=== PATIENT | male | born 1995 | race Caucasian/White ===

== ENCOUNTER 2017-09-16 07:34 | Emergency (ER) | payer BC ==
[~2017-09-16] VITALS: Ht 170.2 cm; Wt 75.0 kg
[2017-09-16 07:46] VITALS: TEMP 36.6; Ht 170.2 cm; Wt 75.0 kg
[2017-09-16] MEDS ORDERED: ACET-1256 PO (08:04)
[2017-09-16] MEDS ORDERED: FAMOTIDINE 20 MG TAB PO ONE (08:15)
--- NOTE | 2017-09-16 08:17 | EMERGENCY ROOM VISIT NOTE ---
History Report prepared by Eh: Laquita Jarvis Under the Supervision of: Dr. Rosa Mccallum M.D. First contact with patient: 08:02 Chief Complaint: ABDOMINAL PAIN Stated Complaint: MASSIVE STOMACH/AB PAIN, INABILITY TO SLEEP Nursing Triage Summary: "I am convinced I have an intestinal disease. I havent had diarrhea or vomiting but I have pain in my abdomen. I went to a [place] and drank a homemade wine/alcohol of some kind and I think there was some kind of bacteria in it. that was friday. after that I ate some under cooked chicken and my symptoms have become worse after eating the chicken" regular bowel movement yesterday History of Present Illness The patient is a 22 year old male who presents to the Emergency Room with complaints of persistent abdominal pain that began three days ago. He currently rates his discomfort as a 6/10 in severity. The patient states that on Friday he went to a [employer] and drank homemade malt wine. He states that he also cooked and ate chicken. The patient states that since then he has been experiencing abdominal pain and nausea, but denies any vomiting or diarrhea. He states that he has been dry heaving. The patient states that his pain is worse at night stating that he has had difficulty sleeping. He denies any increased pain with eating. The patient states that he tried taking two aspirin without relief of symptoms. He denies any previous abdominal surgeries. The patient denies any fever or hematochezia. Source of History: patient Onset: three days ago Position: abdomen Symptom Intensity: 6/10 Timing: other (persistent) Associated Symptoms: + nausea, No fevers, No vomiting, No hematochezia, No diarrhea Note: Associated symptoms: difficulty sleeping, dry heaving Review of Systems See HPI for pertinent positives & negatives. A total of 10 systems reviewed and were otherwise negative. Past Medical & Surgical Medical Problems: (1) Abdominal pain (2) Bronchitis (3) Dehydration, mild (4) Dermatitis (5) Pancreatitis (6) Pancreatitis, acute Family History Hypertension Social History Smoking Status: Current Some Day Smoker Smokeless Tobacco Use: No Alcohol Use: occasionally Marital Status: single Housing Status: lives with roommate Occupation Status: [employer] student Current/Historical Medications Scheduled Acetaminophen (Tylenol), 1,000 MG PO Q4H Omeprazole (Prilosec), 20 MG PO DAILY Allergies Coded Allergies: No Known Allergies (Unverified , 09/16/17) Physical Exam Vital Signs Date Time Temp Pulse Resp B/P (MAP) Pulse Ox O2 Delivery O2 Flow Rate FiO2 09/16/17 10:30 74 18 132/80 97 Room Air 09/16/17 09:35 63 16 121/55 99 Room Air 09/16/17 07:46 36.6 73 18 130/66 96 Room Air Physical Exam Vital signs reviewed. General: Well-appearing male, in no significant distress. HEENT: No scleral icterus, PERRLA, neck supple. Atraumatic. Cardiovascular: Regular rate and rhythm, no extra sounds. Pulmonary: Clear to auscultation bilaterally, normal work of breathing. Abdomen: Soft, mildly tender to epigastric to supraumbilical region, nondistended, positive bowel sounds. No CVA tenderness. Musculoskeletal: Atraumatic, no peripheral edema. Neurologic: Patient awake alert and oriented x 3 Skin: Warm, dry, no rash Medical Decision & Procedures ER Provider Diagnostic Interpretation: Radiology results as stated below per my review and radiologist interpretation: ABDOMEN 2VIEW W/PA CHEST RTN HISTORY: 22 years-old Male abd pain acute generalized abdominal pain COMPARISON: CT abdomen and pelvis 01/29/2015 TECHNIQUE: PA view of the chest with erect and supine views of the abdomen FINDINGS: Cardiomediastinal and hilar silhouettes are within normal limits. No pneumothorax, pleural effusion or lobar airspace consolidation. Subtle linear opacity of the right midlung between the posterior right seventh and eighth ribs is likely secondary to composite pulmonary vasculature or atelectasis. Bones of the chest appear grossly intact. There are a few air-fluid levels within bowel of the central abdomen. The bowel gas pattern appears to be nonobstructive. No pneumatosis or pneumoperitoneum identified. No urolith or organomegaly. IMPRESSION: 1. Nonobstructive bowel gas pattern with scattered air-fluid levels of the central abdomen suggest enteritis or ileus. 2. No pneumatosis or pneumoperitoneum. 3. No urolith. The above report was generated using voice recognition software. It may contain grammatical, syntax or spelling errors. Electronically signed by: Shayne Hu M.D. 09/16/2017 9:28 AM Dictated Date/Time: 09/16/2017 9:25 AM Laboratory Results 09/16/17 07:50 Red Blood Count 5.09, Mean Corpuscular Volume 88.4, Mean Corpuscular Hemoglobin 31.4, Mean Corpuscular Hemoglobin Concent 35.6, Mean Platelet Volume 11.7, Neutrophils (%) (Auto) 69.1, Lymphocytes (%) (Auto) 20.7, Monocytes (%) (Auto) 8.1, Eosinophils (%) (Auto) 1.4, Basophils (%) (Auto) 0.4, Neutrophils # (Auto) 6.78, Lymphocytes # (Auto) 2.03, Monocytes # (Auto) 0.79, Eosinophils # (Auto) 0.14, Basophils # (Auto) 0.04 09/16/17 07:50 Test 09/16/17 07:50 09/16/17 08:35 White Blood Count 9.81 K/uL (4.8-10.8) Red Blood Count 5.09 M/uL (4.7-6.1) Hemoglobin 16.0 g/dL (14.0-18.0) Hematocrit 45.0 % (42-52) Mean Corpuscular Volume 88.4 fL (80-100) Mean Corpuscular Hemoglobin 31.4 pg (25-34) Mean Corpuscular Hemoglobin Concent 35.6 g/dl (32-36) Platelet Count 225 K/uL (130-400) Mean Platelet Volume 11.7 fL (7.4-10.4) Neutrophils (%) (Auto) 69.1 % Lymphocytes (%) (Auto) 20.7 % Monocytes (%) (Auto) 8.1 % Eosinophils (%) (Auto) 1.4 % Basophils (%) (Auto) 0.4 % Neutrophils # (Auto) 6.78 K/uL (1.4-6.5) Lymphocytes # (Auto) 2.03 K/uL (1.2-3.4) Monocytes # (Auto) 0.79 K/uL (0.11-0.59) Eosinophils # (Auto) 0.14 K/uL (0-0.5) Basophils # (Auto) 0.04 K/uL (0-0.2) RDW Standard Deviation 42.5 fL (36.4-46.3) RDW Coefficient of Variation 13.1 % (11.5-14.5) Immature Granulocyte % (Auto) 0.3 % Immature Granulocyte # (Auto) 0.03 K/uL (0.00-0.02) Anion Gap 11.0 mmol/L (3-11) Est Creatinine Clear Calc Drug Dose 114.1 ml/min Estimated GFR () 131.2 Estimated GFR (Non- 113.2 BUN/Creatinine Ratio 12.9 (10-20) Calcium Level 9.2 mg/dl (8.5-10.1) Magnesium Level 2.0 mg/dl (1.8-2.4) Total Bilirubin 0.7 mg/dl (0.2-1) Direct Bilirubin 0.1 mg/dl (0-0.2) Aspartate Amino Transf (AST/SGOT) 13 U/L (15-37) Alanine Aminotransferase (ALT/SGPT) 22 U/L (12-78) Alkaline Phosphatase 63 U/L (45-117) Total Protein 7.2 gm/dl (6.4-8.2) Albumin 4.0 gm/dl (3.4-5.0) Lipase 140 U/L (73-393) Urine Color YELLOW Urine Appearance CLEAR (CLEAR) Urine pH 7.0 (4.5-7.5) Urine Specific [place] 1.019 (1.000-1.030) Urine Protein NEG (NEG) Urine Glucose (UA) NEG (NEG) Urine Ketones NEG (NEG) Urine Occult Blood NEG (NEG) Urine Nitrite NEG (NEG) Urine Bilirubin NEG (NEG) Urine Urobilinogen NEG (NEG) Urine Leukocyte Esterase NEG (NEG) Laboratory results per my review. Medications Administered Medications (Trade) Dose Ordered Sig/Liv Route Start Time Stop Time Status Last Admin Dose Admin Famotidine (Pepcid Tab) 20 mg NOW ONCE PO 09/16/17 08:15 09/16/17 08:18 DC 09/16/17 08:43 20 MG ECG Indication: abdominal pain Rate (beats per minute): 79 Rhythm: sinus with SA Findings: no acute ischemic change, no ectopy ED Course 0812: Past medical records reviewed. The patient was evaluated in room A12B. A complete history and physical examination was performed. 0815: Ordered Pepcid Tab 20 mg PO. 0955: I reevaluated the patient and he is resting comfortably. I discussed the test results with him and I discussed the treatment plan. He verbalized complete understanding and agreement. He is ready to go home. Medical Decision Differential diagnosis: Etiologies such as appendicitis, diverticulitis, PUD, biliary pathology, UTI, pancreatitis, obstruction, mesenteric ischemia, aortic pathology, infections, inflammatory bowel disease, renal colic, as well as others were entertained. This patient was evaluated and appeared to be in no significant distress. Patient's laboratory work is fairly unrevealing. Abdominal x-ray series reveals no evidence of obstruction or free air. Patient does have a history of pancreatitis. He has been drinking alcohol recently. I suspect this is gastritis or peptic ulcer disease. He was given Pepcid 20 mg orally. Patient was placed on 1 month of Prilosec. He'll follow-up with his primary care physician and gastroenterology if symptoms do not improve. He was advised to avoid alcohol, caffeine and smoking. He will maintain a bland diet. He will return to the ER for worsening of symptoms or any medical concerns. Medication Reconcilliation Current Medication List: was personally reviewed by me Impression Primary Impression: Epigastric abdominal pain Scribe Attestation The scribe's documentation has been prepared under my direction and personally reviewed by me in its entirety. I confirm that the note above accurately reflects all work, treatment, procedures, and medical decision making performed by me. Departure Information Dispostion Home / Self-Care Prescriptions Omeprazole (PRILOSEC) 20 Mg Capcr 20 MG PO DAILY for 30 Days, #30 CAP Prov: Rosa Mccallum M.D. 09/16/17 Referrals No Doctor, Assigned (PCP) Forms HOME CARE DOCUMENTATION FORM, IMPORTANT VISIT INFORMATION Patient Instructions My [facility] Additional Instructions Diagnosis: Epigastric abdominal pain Prilosec 20 mg daily for the next 30 days. Avoid any alcohol consumption. Avoid aspirin, ibuprofen and Aleve. Tylenol 650 mg every 6 hours as needed for pain as needed. Drink plenty of water. Avoid soda, coffee Do not smoke cigarettes. Follow-up with [facility] or your primary care physician within the next 2 weeks. Return to the ER for worsening of symptoms or any medical concerns.
[2017-09-16 08:29] LABS: BASO % 0.4 %; BASO ABS # 0.04 K/uL (0-0.2); COMPLETE YES; EOS % 1.4 %; IG% 0.3 %; LYMPH % 20.7 %; LYMPH ABS # 2.03 K/uL (1.2-3.4); MEAN CELL VOLUME 88.4 fL (80-100); MEAN CORPUSCULAR HEMOGLOBIN 31.4 pg (25-34); MEAN CORPUSCULAR HGB CONC 35.6 g/dl (32-36); MEAN PLATELET VOLUME 11.7 fL (7.4-10.4); MONO % 8.1 %; NEUT % 69.1 %; PLATELET COUNT 225 K/uL (130-400); RED BLOOD COUNT 5.09 M/uL (4.7-6.1); WHITE BLOOD COUNT 9.81 K/uL (4.8-10.8)
[2017-09-16 08:39] LABS: BUN/CREATININE RATIO 12.9 (10-20); CALCIUM 9.2 mg/dl (8.5-10.1); CREATININE 0.95 mg/dl (0.60-1.40); POTASSIUM 3.7 mmol/L (3.5-5.1)
[2017-09-16 08:47] LABS: URINE APPEARANCE CLEAR (CLEAR); URINE BILIRUBIN NEG (NEG); URINE COLOR YELLOW; URINE NITRITE NEG (NEG); URINE SPECIFIC GRAVITY 1.019 (1.000-1.030); UROBILINOGEN NEG (NEG); ZZUR CULT IF INDIC CLEAN CATCH NO
[2017-09-16 08:53] LABS: MANUAL MICROSCOPIC REQUIRED? NO; REVIEW REQ? NO
--- NOTE | 2017-09-16 09:30 | DIAGNOSTIC IMAGING REPORT ---
ABDOMEN 2VIEW W/PA CHEST RTN HISTORY: 22 years-old Male abd pain acute generalized abdominal pain COMPARISON: CT abdomen and pelvis 01/29/2015 TECHNIQUE: PA view of the chest with erect and supine views of the abdomen FINDINGS: Cardiomediastinal and hilar silhouettes are within normal limits. No pneumothorax, pleural effusion or lobar airspace consolidation. Subtle linear opacity of the right midlung between the posterior right seventh and eighth ribs is likely secondary to composite pulmonary vasculature or atelectasis. Bones of the chest appear grossly intact. There are a few air-fluid levels within bowel of the central abdomen. The bowel gas pattern appears to be nonobstructive. No pneumatosis or pneumoperitoneum identified. No urolith or organomegaly. IMPRESSION: 1. Nonobstructive bowel gas pattern with scattered air-fluid levels of the central abdomen suggest enteritis or ileus. 2. No pneumatosis or pneumoperitoneum. 3. No urolith. The above report was generated using voice recognition software. It may contain grammatical, syntax or spelling errors. Electronically signed by: Shayne Hu M.D. 09/16/2017 9:28 AM Dictated Date/Time: 09/16/2017 9:25 AM
[2017-09-16] MEDS ORDERED: PRLSR20 PO (10:09)
[2017-09-16 10:30] VITALS: BP 132/80; PULSE 74; O2SAT 97
== END 2017-09-16 10:30 | disposition home or self-care (01) ==
LOC: C.EDB 07:36 → C.EDA 10:30
DX: R10.13 Epigastric pain (principal); K86.1 Other chronic pancreatitis; F17.200 Nicotine dependence, unspecified, uncomplicated; Z82.49 Family history of ischemic heart disease and other diseases of the circulatory system